=== PATIENT | male | born 1975 | race Hispanic/Latino ===

== ENCOUNTER 2017-02-13 19:44 | Emergency (ER) | payer OTHER ==
[~2017-02-13] VITALS: Ht 175.3 cm; Wt 87.3 kg
[~2017-02-13 19:44] MED LIST: NOMED
[2017-02-13 19:55] VITALS: BP 162/80; PULSE 77; RESP 16; O2SAT 98
--- NOTE | 2017-02-13 20:39 | DRSVH ---
PROCEDURE: X-RAY FINGERS, TWO VIEWS INDICATIONS: Fall/pain TECHNIQUE: AP hand, 2 views of the right fifth finger(s) acquired. COMPARISON: None. FINDINGS: Bones: No fractures or dislocations. No suspicious bony lesions. Soft tissues: No suspicious soft tissue calcifications. IMPRESSION: No acute fracture. No osseous lesion. If clinical suspicion and/or symptoms persist, fur ther assessment with repeat plainfilms, or advanced imaging (e.g., CT, MRI, or bone scan) may be help ful for further assessment. Dictated by: Carla Conrad M.D. on 02/13/2017 at 20:37 Approved by: Carla Conrad M.D. on 02/13/2017 at 20:38
--- NOTE | 2017-02-13 21:56 | ED.REPORT ---
HPI-Extremity Problem Upper Date of Service February 13, 2017 ED Provider: Doc,Ed MD The patient is an otherwise healthy 41 year old male who presents to the emergency department after he fell down stairs while he was at work. The patient states he fell backwards, landing on his buttock, and tried to catch himself with his hands. He did not hit his head or lose consciousness. At this time he complains of tailbone pain, left-sided groin pain that radiates down his left leg, and right 5th finger pain. He denies any other injuries. He denies numbness or weakness. Nursing Notes Stated Complaint: WORK ACCIDENT Chief Complaint: Multiple Trauma/Fall Nursing Notes Reviewed: Yes Allergies: Coded Allergies: No Known Allergies (Unverified , 02/13/17) Scheduled PRN Hydrocodone-Acetaminophen 5-325 mg (Hydrocodone-Acetaminophen 5-325 mg) 1 Each Tablet 1 TABLET PO Q6H PRN PRN For Pain Naproxen (Naproxen) 375 Mg Tablet 375 MG PO BID PRN PRN For Pain Miscellaneous Medications No Historical Medication (No Historical Medication) Ea General Time Seen by MD: 21:55 Chief Complaint Finger injury right 5 Hx Obtained From: Patient Arrived By: Walk-in Onset Occurred: 1 - 4 hours ago Symptom Duration: Since onset Caused by: Fall on ground Location: : Finger right 5 Quality: Painful Severity: Current: Moderate Severity: Maximum: Moderate Recent Healthcare: No recent doctor visit, No recent hospitalization Similar Sx Previous: No Past Medical History Past Medical History None Family History Noncontributory Smoking History Unknown if Ever Smoker Social History Other Social History: Good social support, College student Ambulatory Status Independent Review of Systems Review of Systems Note: +tailbone pain, left groin pain Musculoskeletal: Reports: Extremity pain, Extremity swelling Neurologic: Denies: Change LOC, Headache, Syncope Complete sys rev & neg: except as marked. Physical Exam Initial Vital Signs Vital Signs (First) Date Time Temp Pulse Resp B/P Pulse Ox O2 Delivery O2 Flow Rate FiO2 02/13/17 19:55 36.0 77 16 162/80 98 Room Air Initial VS: Reviewed, Vital signs abnormal Head / Eyes: Atraumatic, Normocephalic, PERRL ENT: Mucous membranes moist, Conjunctiva normal, No scleral icterus Neck: Supple, Non-tender, Full range of motion Respiratory: Breath sounds normal, Clear to auscultation, No respiratory distress Cardiovascular: Regular rate & rhythm, Heart sounds normal, Intact distal pulses Abdomen / GI: Soft, Non-tender, No guarding, No rebound, No distention Skin: Warm, Dry, No cyanosis Psychiatric: Mood/affect normal, Behavior normal, Normal thought content General/Constitutional: Awake, Alert, Cooperative Wrist / Hand: Neurologic intact, Vascular intact Right 5th finger: swelling and tenderness at the PIP joint. Normal function and sensation. Neurologic: Oriented X3, Speech NL, No motor deficits, No sensory deficits, Cerebellar NL, Memory NL, Gait NL Lymphatic: 1 cm mobile lymph node in left groin. Lower Extremity / Pelvis / MS: No deformity, Neurologic intact, Vascular intact Left gluteal tenderness. Normal sensation. Interpretation & Diagnostics X-Ray Interpretation Xray Interpretation: IMPRESSION: No acute fracture. No osseous lesion. If clinical suspicion and/or symptoms persist, further assessment with repeat plainfilms, or advanced imaging (e.g., CT, MRI, or bone scan) may be helpful for further assessment. Dictated by: Carla Conrad M.D. on 02/13/2017 at 20:37 Study Performed: Right 5th finger Interpretation / Wet Read by: Interpret - Radiologist Re-Eval/Medical Decision Med Decision/Clinical Course The patient presents after a fall with left gluteal pain and right small finger pain. His x-ray was negative for fracture. As his gluteal pain, there is no central spinal tenderness the patient able to bear weight and has good range of motion. Patient is also concerned about a tender spot in his groin, he has a mobile lymph node and no signs and STI. Source of Hx: Old records Re-Evaluation/Progress : Time of Eval: 22:16 Re-Evaluation/Progress Note: Discussed exam findings, diagnosis, and plan for discharge. All questions were addressed. Counseled Regarding: Diagnosis, Need for follow-up, When/why to return to ED Discharge & Departure Impression: Primary Impression: Fall down stairs Encounter type: initial encounter Qualified Code: W10.8XXA - Fall (on) (from ) other stairs and steps, initial encounter Additional Impressions: Finger contusion Encounter type: initial encounter Finger: thumb Damage to nail status: without damage Laterality: right Qualified Code: S60.011A - Contusion of right thumb without damage to nail, initial encounter Sacral contusion Encounter type: initial encounter Qualified Code: S30.0XXA - Contusion of lower back and pelvis, initial encounter Disposition: Home Discharge Condition All VS Reviewed: Yes Condition: Stable Additional Instructions: Thank you for entrusting us with your care today. Your exam findings are reassuring. Your hand x-ray is negative, there is no evidence of any fractures. Use the pain medication as prescribed. You can apply ice if this helps with your pain. You have a lymph node to your left groin region. You should be re-evaluated if this becomes more swollen or painful. Followup with your regular doctor if your symptoms do not improve. Seek care for any new or concerning symptoms. Referrals: Gary Lindquist MD (PCP) Scribe Attestation Portions of this note were transcribed by Brie Amaya. I, Dr. Garza personally performed the history, physical exam and medical decision-making; I reviewed and confirmed the accuracy of the information in the transcribed note. Signed by: Dani Mcdaniel, 02/13/2017 at 2230. copies to: Gary Lindquist MD, Jena M MD February 13, 2017 21:55 Brie Amaya February 13, 2017 22:02
[2017-02-13] MEDS ORDERED: NAPR375T2 PO (22:23)
[2017-02-13] MEDS ORDERED: HYDR-4003 PO (22:23)
[2017-02-13] MEDS ORDERED: HYDROcodone-APAP 5-325 mg Tablet PO ONE (22:25)
[2017-02-13 22:41] VITALS: BP 152/78; PULSE 75; RESP 16; O2SAT 99
== END 2017-02-13 22:27 | disposition home or self-care (01) ==
LOC: SED 19:44
DX: S63.696A Other sprain of right little finger, initial encounter (principal); S60.051A Contusion of right little finger without damage to nail, initial encounter; S30.0XXA Contusion of lower back and pelvis, initial encounter; W10.8XXA Fall (on) (from) other stairs and steps, initial encounter; Y92.59 Other trade areas as the place of occurrence of the external cause; Y93.89 Activity, other specified; Y99.0 Civilian activity done for income or pay; R59.0 Localized enlarged lymph nodes